=== PATIENT | male | born 1990 | race Caucasian/White ===

== ENCOUNTER 2019-05-04 21:38 | Emergency (ER) | payer SELFPAY ==
[~2019-05-04] VITALS: Ht 167.6 cm; Wt 83.9 kg
--- NOTE | 2019-05-04 21:45 | NUR ---
BIB SELF C/O INTERMITTENT HEADACHE WITH DIZZINESS X2 WEEKS. PATIENT A/OX4, BREATHING EVEN AND UNLABORED, NO SOB NOTED, NEEDS ATTENDED. KEPT COMFORTABLE.
--- NOTE | 2019-05-04 22:41 | NUR ---
PATIENT TAKEN TO CT.
--- NOTE | 2019-05-04 23:31 | NUR ---
Patient discharged to home in stable condition. Written and verbal after care instructions given. Patient verbalizes understanding of instruction.
[2019-05-04 23:32] VITALS: BP 147/89
== END 2019-05-04 23:32 | disposition home or self-care (01) ==
LOC: ER 21:44
DX: G43.909 Migraine, unspecified, not intractable, without status migrainosus (principal); R42 Dizziness and giddiness; F17.200 Nicotine dependence, unspecified, uncomplicated
CPT/HCPCS: 70450-TC